=== PATIENT | male | born 1970 | race Caucasian/White ===

== ENCOUNTER → 2020-11-12 | Outpatient (CLI) | payer OTHER ==
[~2020-11-12] MED LIST: ALDACTONE 25MG25 MG PO; ASACOL HD800 MG PO; CO Q10100 MG PO; DONNATAL TABL16.2 MG PO; ELIQUIS 5 MG TAB5 MG PO; FEOSOL325 MG PO; FERROUS SULFAT325 M2 PO; FLAGYL500 MG PO; FUROSEMIDE40 MG PO; HUMIRA40 MG/0.8 SQ; IMURAN TAB 50 M50 MG PO; K-DUR TAB 20 M20 MEQ PO; LACTINEX TABLET1 EA PO; LISINOPRIL5 MG PO; LOPRESSOR 50 MG50 MG PO; MEDROL4 MG PO; PREDNISONE10 MG PO; VANCOCIN HCL250 MG PO; VITAMIN B-1000 MCG/M IM
[2020-11-13 09:13] LABS: VITAMIN D, 25-HYDROXY 25.9 ng/mL (30.0-100.0)
[2020-11-13 12:13] LABS: RHEUMATOID ARTHRITIS FACTOR <10.0 IU/mL (0.0-13.9)
== END ==
LOC: LAB 15:38
PROVIDERS: Nurse Practitioner Family
DX: Z00.00 Encounter for general adult medical examination without abnormal findings (principal); M25.50 Pain in unspecified joint; I42.9 Cardiomyopathy, unspecified; K76.0 Fatty (change of) liver, not elsewhere classified; R10.13 Epigastric pain; M10.9 Gout, unspecified; E78.00 Pure hypercholesterolemia, unspecified; N40.1 Benign prostatic hyperplasia with lower urinary tract symptoms; R33.8 Other retention of urine; E53.8 Deficiency of other specified B group vitamins; E55.9 Vitamin D deficiency, unspecified; Z79.01 Long term (current) use of anticoagulants
CPT/HCPCS: 36415; 82607; 86038; 86060; 86431

== ENCOUNTER → 2020-11-28 | Outpatient (CLI) | payer OTHER ==
[~2020-11-28] VITALS: Ht 188 cm; Wt 114.3 kg
[2020-11-28 13:45] LABS: HEMOGLOBIN 15.4 gm/dl (14.0-17.5); RED BLOOD COUNT 5.08 M/UL (4.20-5.50); WHITE BLOOD COUNT 10.4 K/UL (4.5-11.0)
[2020-11-28 14:07] LABS: BUN/CREATININE RATIO 19 (0-10)
== END ==
LOC: OPSV 13:18
PROVIDERS: Internal Medicine Gastroenterology
DX: K51.50 Left sided colitis without complications (principal); R94.5 Abnormal results of liver function studies; R19.7 Diarrhea, unspecified; I50.20 Unspecified systolic (congestive) heart failure; R00.0 Tachycardia, unspecified; I42.8 Other cardiomyopathies; L08.0 Pyoderma; I51.3 Intracardiac thrombosis, not elsewhere classified
CPT/HCPCS: 80053; 85025; 86140; 96365; J3380; J7050

== ENCOUNTER → 2021-05-21 | Outpatient (CLI) | payer OTHER | LOC: HEART 5 05-20 13:00 | DX: I42.9 Cardiomyopathy, unspecified (principal); R06.02 Shortness of breath | CPT/HCPCS: 93306 ==

== ENCOUNTER → 2022-05-21 | Outpatient (CLI) | payer OTHER | LOC: LAB 07:12 | DX: I50.22 Chronic systolic (congestive) heart failure (principal); Z20.822 Contact with and (suspected) exposure to COVID-19 | CPT/HCPCS: U0002 ==